=== PATIENT | male | born 1960 | race Hispanic/Latino ===

== ENCOUNTER 2017-09-21 08:41 | Day surgery (SDC) | payer OTHER ==
[2017-09-21] MEDS ORDERED: Ringers Lactate 1,000 ML IV ONE (08:54)
[2017-09-21] MEDS ORDERED: PROPOFOL 200 MG/20 ML VIAL IV ONE ×2 (09:46)
[2017-09-21] MEDS ORDERED: LIDOCAINE 1% MPF 5 ML VIAL ONE (09:46)
--- NOTE | 2017-09-21 10:16 | ENDO RPT ---
[address], [address] COLONOSCOPY PROCEDURE REPORT EXAM DATE: 09/21/2017 PATIENT NAME: Clemente Olmedo MR #: [id number] BIRTHDATE: 1960 ATTENDING: Akira Reyes DR STATUS: outpatient NEUROLOGY MANAGER: Phyllis Samano and Tierney Lira RN INDICATIONS: The patient is a 57 yr old Male here for a colonoscopy due to colon cancer screening PROCEDURE PERFORMED: Colonoscopy with biopsy - cold polypectomy MEDICATIONS: Per Anesthesia. ESTIMATED BLOOD LOSS: None CONSENT: The patient understands the risks and benefits of the procedure and understands that these risks include, but are not limited to: sedation, allergic reaction, infection, perforation and/or bleeding. Alternative means of evaluation and treatment include, among others: physical exam, x-rays, and/or surgical intervention. The patient elects to proceed with this endoscopic procedure. DESCRIPTION OF PROCEDURE: During intra-op preparation period all mechanical medical equipment was checked for proper function. Hand hygiene and appropriate measures for infection prevention was taken. Procedure, possible complications, alternatives including, but not limited to possibility of bleeding, perforation, tear, infection, sepsis, need for surgery, need for blood transfusion, were explained to the patient. After the risks, benefits and alternatives of the procedure were thoroughly explained, Informed consent was verified, confirmed and timeout was successfully executed by the treatment team. The patient was placed in the left lateral position. A digital rectal exam was performed and revealed internal hemorrhoids. After appropriate level of anesthesia, the scope was passed. The [id number] ([id number]) endoscope was introduced through the anus and advanced to the cecum, which was identified by both the appendix and ileocecal valve. The quality of the prep was fair. The instrument was then slowly withdrawn as the colon was fully examined. Scope withdrawal time was 13 minutes. COLON FINDINGS: A medium sized patch of abnormal mucosa was found in the right colon and left colon. The mucosa was erythematous and had petechiae. A polypectomy was performed with cold forceps. The resection was incomplete and the polyp tissue was completely retrieved. Two small smooth sessile polyps with friable surfaces were found in the right colon and sigmoid colon. A polypectomy was performed with cold forceps. The resection was complete, the polyp tissue was completely retrieved and sent to histology. Small internal hemorrhoids were found. Moderate diverticulosis was noted throughout the entire examined colon. No bleeding was noted from the diverticulosis. Retroflexed views revealed no abnormalities. The scope was then completely withdrawn from the patient and the procedure terminated. ADVERSE EVENTS: There were no complications. IMPRESSIONS: 1. Medium sized abnormal mucosa was found in the right colon and left colon; The mucosa was erythematous and had petechiae; polypectomy was performed with cold forceps 2. Two small sessile polyps were found in the right colon and sigmoid colon; polypectomy was performed in a piecemeal fashion with cold forceps 3. Small internal hemorrhoids RECOMMENDATIONS: 1. follow-up: office 2 week(s) 2. await biopsy results 3. avoid NSAIDS for 2 weeks 4. hemorrhoidal hygiene 5. increase dietary water 6. low fiber / diverticular diet RECALL: Return in 3 year(s) for Colonoscopy, pending biopsy results. Akira Reyes DR eSigned: Akira Reyes DR 09/21/2017 10:16 AM cc: CPT CODES: ICD9 CODES: PATIENT NAME: Clemente Olmedo MR#: [id number]
[2017-09-21 11:39] VITALS: BP 122/70; TEMP 97.4; O2SAT 99
== END 2017-09-21 11:05 | disposition home or self-care (01) ==
LOC: ENDO 08:41
PROVIDERS: ATTEND Surgery
PROC: 0DBN8ZX Excision of Sigmoid Colon, Via Natural or Artificial Opening Endoscopic, Diagnostic (ICD-10-PCS; 2017-09-21)
PROC: 0DBF8ZX Excision of Right Large Intestine, Via Natural or Artificial Opening Endoscopic, Diagnostic (ICD-10-PCS; principal; 2017-09-21 10:00)
DX: Z12.11 Encounter for screening for malignant neoplasm of colon (principal); D12.5 Benign neoplasm of sigmoid colon; K63.5 Polyp of colon; K57.90 Diverticulosis of intestine, part unspecified, without perforation or abscess without bleeding; K64.8 Other hemorrhoids; G47.33 Obstructive sleep apnea (adult) (pediatric); K21.9 Gastro-esophageal reflux disease without esophagitis; E66.9 Obesity, unspecified; Z87.891 Personal history of nicotine dependence; Z80.3 Family history of malignant neoplasm of breast; Z80.42 Family history of malignant neoplasm of prostate; Z83.3 Family history of diabetes mellitus
CPT/HCPCS: 88305

== ENCOUNTER 2017-09-23 18:15 | Emergency (ER) | payer OTHER ==
[2017-09-23 19:30] LABS: Urine Blood NEGATIVE (NEG); Urine Glucose NEGATIVE (NEG); Urine Protein NEGATIVE (NEG); Urine Specific Gravity >1.030 (1.005-1.030); Urine pH 5.5 (5.0-7.0)
[2017-09-23] MEDS ORDERED: FENTANYL CITR 100 MCG/2 ML ONE ×2 (19:30→22:39)
[2017-09-23] MEDS ORDERED: NA CHLORIDE 0.9% 1,000 ML ONE (19:30)
[2017-09-23] MEDS ORDERED: ONDANSETRON 4 MG/2 ML VIAL ONE (19:30)
[2017-09-23 19:50] LABS: Urine Bacteria <20 /HPF (NONE SEEN); Urine RBC <5 /HPF (NONE SEEN)
[2017-09-23 19:51] LABS: Urine Culture Reflex Order NOT NEEDED; Urine Mucus 1+ /HPF (NONE SEEN)
[2017-09-23 19:54] LABS: Absolute Lymphocytes (CBC) 1.2 K/uL (0.7-4.9); Absolute Monocytes 0.3 K/uL (0.1-1.3); Basophils % 0.5 % (0-1.3); Hematocrit 43.1 % (39.6-49.0); Lymphocytes % 26.9 % (15.3-44.8); MCH 28.8 pg (27.0-35.0); MCV 86.3 fL (80-100); MPV 10.6 fL (7.6-11.3); Monocytes % 6.1 % (3.3-12.3)
[2017-09-23 19:57] LABS: Bicarbonate 26 mEq/L (21-31); Glucose Level 90 mg/dL (65-120); Lipase 40 U/L (22-51); Potassium 3.6 mEq/L (3.6-5.0); Sodium Level 138 mEq/L (135-145)
[2017-09-23 20:03] LABS: ALT/SGPT 44 IU/L (10-60); AST/SGOT 32 IU/L (10-42); Alkaline Phosphatase 73 IU/L (42-121); Amylase Level 38 U/L (28-100); BUN Blood Urea Nitrogen 16 mg/dL (6-20); Bilirubin Direct 0.1 mg/dL (0-0.2); Bilirubin Total 0.6 mg/dL (0.3-1.2); Protein, Total 6.8 g/dL (6.0-8.3)
--- NOTE | 2017-09-23 22:00 | RAD REPORT ---
EXAM DESCRIPTION: CTAbdomen Pelvis W Contrast - 09/23/2017 9:50 pm CLINICAL HISTORY: Abdominal pain. COMPARISON: 05/14/2013 TECHNIQUE: Biphasic CT imaging of the abdomen and pelvis was performed with 100 ml non-ionic IV cont rast. All CT scans are performed using dose optimization technique as appropriate and may include automated exposure control or mA/KV adjustment according to patient size. FINDINGS: The lung bases are clear. The liver demonstrates diffuse fatty infiltration. The spleen, pancreas, adrenal glands and kidneys a re within normal limits. No bowel obstruction, free air, free fluid or abscess. Prominent sigmoid diverticulosis coli without diverticulitis. The appendix is normal. No evidence of significant lymphadenopathy. No suspicious bony findings. IMPRESSION: No acute intra-abdominal or pelvic finding. Fatty liver. Prominent diverticulosis coli without diverticulitis.
--- NOTE | 2017-09-23 22:14 | ER ---
Nurse's Notes [facility] Name: Clemente Olmedo Age: 57 yrs Sex: Male : 1960 Arrival Date: 09/23/2017 Time: 18:20 Bed 18 Private MD: Diagnosis: Low back pain;Radiculopathy, lumbosacral region;Lower abdominal pain, unspecified Presentation: 09/23 18:28 Presenting complaint: Patient states: I had a colonoscopy Sunday with dr Reyes and I la1 am having a bad pain in my chest/epigastric area that has been getting worse since the procedure, pt denies N/V/D. Transition of care: patient was not received from another setting of care. Onset of symptoms was September 23, 2017. Initial Sepsis Screen: Does the patient meet any 2 criteria? No. Patient's initial sepsis screen is negative. Does the patient have a suspected source of infection? No. Patient's initial sepsis screen is negative. Care prior to arrival: None. 18:28 Method Of Arrival: Ambulatory la1 18:28 Acuity: BEBA 3 la1 Triage Assessment: 18:33 General: Appears in no apparent distress. uncomfortable, obese, Behavior is calm, hj cooperative, appropriate for age. Pain: Complains of pain in abdomen Pain radiates to back Pain currently is 5 out of 10 on a pain scale. Quality of pain is described as crampy, pressure, stabbing, Pain began 2-3 days ago. Is intermittent. EENT: No signs and/or symptoms were reported regarding the EENT system. Neuro: Level of Consciousness is awake, alert, obeys commands, Oriented to person, place, time, situation, Appropriate for age. Cardiovascular: Capillary refill < 3 seconds Patient's skin is warm and dry. Respiratory: Airway is patent Respiratory effort is even, unlabored, Respiratory pattern is regular, symmetrical. GI: Abdomen is obese, Bowel sounds present X 4 quads. Abd is soft in epigastric area, right upper quadrant, left upper quadrant, right lower quadrant and left lower quadrant Abdomen is tender to palpation. : No signs and/or symptoms were reported regarding the genitourinary system. Derm: No signs and/or symptoms reported regarding the dermatologic system. Musculoskeletal: No signs and/or symptoms reported regarding the musculoskeletal system. Historical: - Allergies: 18:29 No Known Allergies; la1 - PMHx: 18:29 Diverticulitis; High Cholesterol; Arthritis; la1 - Immunization history:: Adult Immunizations up to date. - Social history:: Smoking status: Patient/guardian denies using tobacco. Screenin:33 Abuse screen: Denies threats or abuse. Denies injuries from another. Nutritional hj screening: No deficits noted. Tuberculosis screening: No symptoms or risk factors identified. Fall Risk None identified. Assessment: 18:35 Reassessment: see triage assessment;. hj 19:00 Reassessment: RECD REPORT FROM ULYSSES RODRIGUEZ. 57YO HM P/W ABD PAIN, H/O KIDNEY STONES AND bp RECENT COLONOSCOPY. PROVIDER EVAL IN PROCESS. 19:51 Reassessment: PT DRINKING PO CONTRAST. bp 20:19 Reassessment: PO CONTRAST COMPLETED, CT NOTIFIED. bp 21:41 Reassessment: PT TO CT WITH APPLICATION INFRASTRUCTURE ENGINEER. bp 22:47 Reassessment: PT D/C HOME AMBULATORY WITH FAMILY, DX WITH RADICULOPATHY. bp Vital Signs: 18:29 BP 109 / 81; Pulse 71; Resp 19; Temp 98.6; Pulse Ox 100% on R/A; Weight 114.76 kg; la1 Height 5 ft. 6 in. (167.64 cm); 18:49 BP 110 / 85; Pulse 65; Resp 18; Pulse Ox 98% on R/A; hj 19:48 BP 125 / 82; Pulse 64; Resp 18; Pulse Ox 97% ; bp 20:41 BP 116 / 77; Pulse 56; Resp 14; Pulse Ox 97% ; bp 22:15 BP 119 / 65; Pulse 54; Resp 14; Pulse Ox 96% ; bp 18:29 Body Mass Index 40.83 (114.76 kg, 167.64 cm) la1 ED Course: 18:20 Patient arrived in ED. mr 18:29 Triage completed. la1 18:29 Arm band placed on left wrist. la1 18:30 Ulysses Pizano, RN is Primary Nurse. hj 18:35 Patient has correct armband on for positive identification. Placed in gown. Bed in low hj position. Call light in reach. Side rails up X 1. Adult w/ patient. 18:44 Cindy Malave FNP-C [facility]. snw 18:44 Jarad Dean MD is Attending Physician. snw 18:45 Initial lab(s) drawn, by me, sent to lab. Inserted saline lock: 22 gauge in right hj antecubital area, using aseptic technique. Blood collected. 19:39 Inserted saline lock: 18 gauge in left antecubital area, using aseptic technique. IV bp discontinued, PT C/O POSITIONAL PAIN WITH 22GA R AC. 21:27 Primary Nurse role handed off by Ulysses Pizano, RN bp 21:27 Randy Jalloh, JENNIFER is Primary Nurse. bp 21:50 CT Abd/Pelvis - W/Contrast In Process Unspecified. EDMS 21:50 CT completed. Patient tolerated procedure well. Patient moved back from CT. cw1 22:13 Akira Reyes MD is Referral Physician. snw 22:48 No provider procedures requiring assistance completed. IV discontinued, intact, bp bleeding controlled, No redness/swelling at site. Pressure dressing applied. Administered Medications: 19:30 Drug: NS 0.9% 1000 ml Route: IV; Rate: 75 ml/hr; Site: left antecubital; bp 22:19 Follow up: IV Status: Completed infusion bp 19:30 Drug: fentaNYL (PF) 25 mcg Route: IVP; Site: left antecubital; bp 19:47 Follow up: Response: No adverse reaction bp 19:30 Drug: Zofran 4 mg Route: IVP; Site: left antecubital; bp 19:48 Follow up: Response: No adverse reaction bp 22:47 Drug: fentaNYL (PF) 50 mcg Route: IM; Site: right deltoid; bp 22:49 Follow up: Response: Medication administered at discharge. bp Outcome: 22:14 Discharge ordered by . snw 22:48 Discharged to home ambulatory, with family. bp 22:48 Condition: stable 22:48 Discharge instructions given to patient, Instructed on discharge instructions, follow up and referral plans. medication usage, Demonstrated understanding of instructions, follow-up care, medications, Prescriptions given X 2. 22:49 Patient left the ED. bp Signatures: Dispatcher [employer] EDMS Cindy Malave, CLERICAL METHODS ANALYST-C CLERICAL METHODS ANALYST-Csnw Paz Cal[place] Nadia Wilcox cw1 Garett Krueger RN RN la1 Ulysses Pizano, RN JENNIFER Randy Jalloh, JENNIFER RN bp Corrections: (The following items were deleted from the chart) 18:49 18:33 General: Appears in no apparent distress. uncomfortable, obese, Behavior is calm, hj cooperative, appropriate for age, hj 18:49 18:33 GI: Abdomen is obese, Bowel sounds present X 4 quads. Abdomen is tender to hj palpation Abd is rigid hj
--- NOTE | 2017-09-23 22:14 | EDPHYS ---
Physician Documentation [facility] Name: Clemente Olmedo Age: 57 yrs Sex: Male : 1960 Arrival Date: 09/23/2017 Time: 18:20 Bed 18 Private MD: ED Physician Jarad Dean HPI: 09/23 19:33 This 57 yrs old Male presents to ER via Ambulatory with complaints of snw Abdominal Pain. 19:33 Onset: The symptoms/episode began/occurred acutely. The symptoms do not radiate. snw Associated signs and symptoms: none. The symptoms are described as steady. Modifying factors: The symptoms are alleviated by nothing. Severity of pain: At its worst the pain was moderate severe. The patient has not experienced similar symptoms in the past. The patient has been recently seen by a physician: Dr. Reyes - colonoscopy on Sunday. Historical: - Allergies: 18:29 No Known Allergies; la1 - PMHx: 18:29 Diverticulitis; High Cholesterol; Arthritis; la1 - Immunization history:: Adult Immunizations up to date. - Social history:: Smoking status: Patient/guardian denies using tobacco. ROS: 19:25 Constitutional: Negative for fever, chills, and weight loss, Eyes: Negative for injury, snw pain, redness, and discharge, ENT: Negative for injury, pain, and discharge, Neck: Negative for injury, pain, and swelling, Cardiovascular: Negative for chest pain, palpitations, and edema, Respiratory: Negative for shortness of breath, cough, wheezing, and pleuritic chest pain, Abdomen/GI: Negative for nausea, vomiting, diarrhea, and constipation, + abdominal pain Back: Negative for injury + right lower back pain with radiation down right leg : Negative for injury, bleeding, discharge, and swelling, MS/Extremity: Negative for injury and deformity, Skin: Negative for injury, rash, and discoloration, Neuro: Negative for headache, weakness, numbness, tingling, and seizure, Psych: Negative for depression, anxiety, suicide ideation, homicidal ideation, and hallucinations. Exam: 19:20 Constitutional: This is a well developed, well nourished patient who is awake, alert, snw and in no acute distress. Head/Face: Normocephalic, atraumatic. Eyes: Pupils equal round and reactive to light, extra-ocular motions intact. Lids and lashes normal. Conjunctiva and sclera are non-icteric and not injected. Cornea within normal limits. Periorbital areas with no swelling, redness, or edema. ENT: Nares patent. No nasal discharge, no septal abnormalities noted. Tympanic membranes are normal and external auditory canals are clear. Oropharynx with no redness, swelling, or masses, exudates, or evidence of obstruction, uvula midline. Mucous membranes moist. Neck: Trachea midline, no thyromegaly or masses palpated, and no cervical lymphadenopathy. Supple, full range of motion without nuchal rigidity, or vertebral point tenderness. No Meningismus. Chest/axilla: Normal chest wall appearance and motion. Nontender with no deformity. No lesions are appreciated. Cardiovascular: Regular rate and rhythm with a normal S1 and S2. No gallops, murmurs, or rubs. Normal PMI, no JVD. No pulse deficits. Respiratory: Lungs have equal breath sounds bilaterally, clear to auscultation and percussion. No rales, rhonchi or wheezes noted. No increased work of breathing, no retractions or nasal flaring. Back: No spinal tenderness. No costovertebral tenderness. Full range of motion. Skin: Warm, dry with normal turgor. Normal color with no rashes, no lesions, and no evidence of cellulitis. MS/ Extremity: Pulses equal, no cyanosis. Neurovascular intact. Full, normal range of motion. Neuro: Awake and alert, GCS 15, oriented to person, place, time, and situation. Cranial nerves II-XII grossly intact. Motor strength 5/5 in all extremities. Sensory grossly intact. Cerebellar exam normal. Normal gait. 19:20 Abdomen/GI: Inspection: distension, that is mild, Bowel sounds: active, Palpation: moderate abdominal tenderness, severe abdominal tenderness, in the left upper quadrant and left lower quadrant, no appreciated organomegaly. Vital Signs: 18:29 BP 109 / 81; Pulse 71; Resp 19; Temp 98.6; Pulse Ox 100% on R/A; Weight 114.76 kg; la1 Height 5 ft. 6 in. (167.64 cm); 18:49 BP 110 / 85; Pulse 65; Resp 18; Pulse Ox 98% on R/A; hj 19:48 BP 125 / 82; Pulse 64; Resp 18; Pulse Ox 97% ; bp 20:41 BP 116 / 77; Pulse 56; Resp 14; Pulse Ox 97% ; bp 22:15 BP 119 / 65; Pulse 54; Resp 14; Pulse Ox 96% ; bp 18:29 Body Mass Index 40.83 (114.76 kg, 167.64 cm) la1 MDM: 18:46 Patient medically screened. snw 20:32 Data reviewed: vital signs, nurses notes. Data interpreted: Pulse oximetry: on room air snw is 97 %. Interpretation: normal. Counseling: I had a detailed discussion with the patient and/or guardian regarding: the historical points, exam findings, and any diagnostic results supporting the discharge/admit diagnosis, the presence of at least one elevated blood pressure reading (>120/80) during this emergency department visit, lab results. 09/23 19:16 Order name: Amylase, Serum; Complete Time: 20:25 snw 09/23 19:16 Order name: Basic Metabolic Panel; Complete Time: 20:25 snw 09/23 19:16 Order name: CBC with Diff; Complete Time: 20:25 snw 09/23 19:16 Order name: Creatinine for Radiology; Complete Time: 20:25 snw 09/23 19:16 Order name: Hepatic Function; Complete Time: 20:25 snw 09/23 19:16 Order name: Lipase; Complete Time: 20:25 snw 09/23 19:16 Order name: Urine Microscopic Only; Complete Time: 20:25 snw 09/23 19:27 Order name: Urine Dipstick--Ancillary (enter results); Complete Time: 19:34 mw2 09/23 19:35 Order name: CT Abd/Pelvis - W/Contrast; Complete Time: 22:01 snw 09/23 19:16 Order name: IV Saline Lock; Complete Time: 19:18 snw 09/23 19:16 Order name: Labs collected and sent; Complete Time: 19:41 snw 09/23 19:16 Order name: Urine Dipstick-Ancillary (obtain specimen); Complete Time: 19:41 snw Administered Medications: 19:30 Drug: NS 0.9% 1000 ml Route: IV; Rate: 75 ml/hr; Site: left antecubital; bp 22:19 Follow up: IV Status: Completed infusion bp 19:30 Drug: fentaNYL (PF) 25 mcg Route: IVP; Site: left antecubital; bp 19:47 Follow up: Response: No adverse reaction bp 19:30 Drug: Zofran 4 mg Route: IVP; Site: left antecubital; bp 19:48 Follow up: Response: No adverse reaction bp 22:47 Drug: fentaNYL (PF) 50 mcg Route: IM; Site: right deltoid; bp 22:49 Follow up: Response: Medication administered at discharge. bp Disposition: 09/23/17 22:14 Discharged to Home. Impression: Low back pain, Radiculopathy, lumbosacral region, Lower abdominal pain, unspecified. - Condition is Stable. - Discharge Instructions: Abdominal Pain, Adult, Back Pain, Adult, Lumbosacral Radiculopathy, Musculoskeletal Pain, Heat Therapy. - Prescriptions for Ultram 50 mg Oral Tablet - take 1 tablet by ORAL route every 6 hours As needed; 15 tablet. orphenadrine citrate 100 mg Oral Tablet Sustained Release - take 1 tablet by ORAL route 2 times per day As needed; 20 tablet. - Work release form, Medication Reconciliation Form, Thank You Letter, Antibiotic Education, Prescription Opioid Use form. - Follow up: Akira Reyes MD; When: 1 - 2 days; Reason: Recheck today's complaints, Continuance of care, Re-evaluation by your physician. Addendum: 10/02/2017 05:59 Co-signature as Attending Physician, Jarad Dean MD I agree with the assessment and w a plan of care. Signatures: Dispatcher [employer] [facility] Cindy Malave, MASK DESIGN ENGINEER-C MASK DESIGN ENGINEER-Csnw Garett Krueger, RN RN la1 aJrad Dean MD MD mo Randy Jalloh, RN RN bp Corrections: (The following items were deleted from the chart) 09/23 19:40 18:45 Abdomen Acute Series+[id number].[email or web address].BRZ ordered. [facility] 22:49 22:14 09/23/2017 22:14 Discharged to Home. Impression: Low back pain; Radiculopathy, bp lumbosacral region; Lower abdominal pain, unspecified. Condition is Stable. Forms are Medication Reconciliation Form, Thank You Letter, Antibiotic Education, Prescription Opioid Use. Follow up: Akira Reyes; When: 1 - 2 days; Reason: Recheck today's complaints, Continuance of care, Re-evaluation by your physician. snw
[2017-09-23 22:55] VITALS: TEMP 98.6
[2017-09-23 23:00] VITALS: BP 119/65; O2SAT 96
== END 2017-09-23 22:49 | disposition home or self-care (01) ==
LOC: ER 18:15
DX: M54.17 Radiculopathy, lumbosacral region (principal); R10.30 Lower abdominal pain, unspecified
CPT/HCPCS: 36415; 74177; 80048; 80076; 81003; 81015; 82150; 83690; 85025; 96361; 96372; 96374; 96375; 99284; J2405; J3010; J7030; Q9967

== ENCOUNTER 2018-02-14 22:17 | Emergency (ER) | payer OTHER ==
[2018-02-15] MEDS ORDERED: NA CHLORIDE 0.9% 50 ML IV ONE
[2018-02-15] MEDS ORDERED: CEFTRIAXONE 1000 MG/VIAL ONE
[2018-02-15 00:19] LABS: ALT/SGPT 78 U/L (12-78); AST/SGOT 55 U/L (15-37); Albumin 3.6 g/dL (3.4-5.0); Alkaline Phosphatase 105 U/L (45-117); BUN Blood Urea Nitrogen 18 mg/dL (7-18); Bicarbonate 26 mmol/L (21-32); Bilirubin Total 0.6 mg/dL (0.2-1.0); Glucose Level 142 mg/dL (74-106); NT PRO-BNP 10 pg/mL (<125); Potassium 3.3 mmol/L (3.5-5.1); Protein, Total 7.1 g/dL (6.4-8.2); Sodium Level 139 mmol/L (136-145); Troponin (Emerg Dept Use Only) < 0.02 ng/mL (0.0-0.045)
[2018-02-15 00:37] LABS: Absolute Lymphocytes (CBC) 1.2 K/uL (0.7-4.9); Absolute Monocytes 0.3 K/uL (0.1-1.3); Absolute Neutrophil 2.6 K/uL (1.8-8.0); Basophils % 0.5 % (0-1.3); Eosinophils % 3.5 % (0-4.4); Hematocrit 41.8 % (39.6-49.0); Lymphocytes % 27.4 % (15.3-44.8); MCH 29.6 pg (27.0-35.0); MCV 85.8 fL (80-100); MPV 11.1 fL (7.6-11.3); Monocytes % 7.7 % (3.3-12.3); RBC Red Blood Cell Count 4.87 M/uL (4.33-5.43)
--- NOTE | 2018-02-15 01:00 | ER ---
Nurse's Notes [facility] Name: Clemente Olmedo Age: 58 yrs Sex: Male : 1960 Arrival Date: 02/14/2018 Time: 22:21 Bed 15 Private MD: Diagnosis: Unspecified adverse effect of drug or medicament-amoxil, bactrim Presentation: 02/14 22:38 Presenting complaint: Patient states: he was started on amoxicillin and bactrim on bb Sunday for a sius infection his penis became swollen and he stopped the amoxicillin but continued the bactrim now he is itching and he is also c/o cramping to the inside of both legs. Transition of care: patient was not received from another setting of care. Onset of symptoms was February 10, 2018. Risk Assessment: Do you want to hurt yourself or someone else? Patient reports no desire to harm self or others. Initial Sepsis Screen: Does the patient meet any 2 criteria? No. Patient's initial sepsis screen is negative. Does the patient have a suspected source of infection? No. Patient's initial sepsis screen is negative. Care prior to arrival: None. 22:38 Method Of Arrival: Ambulatory 22:38 Acuity: BEBA 3 bb Triage Assessment: 02/15 01:34 General: Appears in no apparent distress. Behavior is calm, cooperative. mg2 Historical: - Allergies: 01:28 Bactrim; mg2 01:28 Amoxicillin; mg2 - Home Meds: 02/14 22:47 Bactrim DS Oral [Active]; Celebrex 200 mg Oral cap 1 cap 2 times per day [Active]; bb tramadol 50 mg Oral tab 1 tab twice a day [Active]; Crestor 10 mg oral tab 1 tab once daily [Active]; Allopurinol Oral once daily [Active]; Flomax 0.4 mg Oral cp24 1 cap once daily [Active]; Prilosec 40 mg Oral cpDR 1 cap once daily [Active]; - PMHx: 22:47 Arthritis; Diverticulitis; High Cholesterol; Gout; bb - PSHx: 22:47 None; bb - Immunization history:: Adult Immunizations up to date. - Social history:: Smoking status: Patient/guardian denies using tobacco, Patient uses alcohol, occasionally. Patient/guardian denies using street drugs. - Ebola Screening: : No symptoms or risks identified at this time. Screenin:30 Abuse screen: Denies threats or abuse. Denies injuries from another. Nutritional cc3 screening: No deficits noted. Tuberculosis screening: No symptoms or risk factors identified. Fall Risk Ambulatory Aid- None/Bed Rest/Nurse Assist (0 pts). Gait- Normal/Bed Rest/Wheelchair (0 pts) Mental Status- Oriented to own ability (0 pts). Assessment: 23:50 Reassessment: Patient appears in no apparent distress at this time. Patient and/or cc3 family updated on plan of care and expected duration. Pain level reassessed. Patient is alert, oriented x 3, equal unlabored respirations, skin warm/dry/pink. Patient taken by mold maintenance technician for CT scan stone protocol procedure. 02/15 00:30 Reassessment: Patient appears in no apparent distress at this time. Patient and/or cc3 family updated on plan of care and expected duration. Pain level reassessed. Patient is alert, oriented x 3, equal unlabored respirations, skin warm/dry/pink. 01:33 Reassessment: Patient appears in no apparent distress at this time. Patient and/or mg2 family updated on plan of care and expected duration. Pain level reassessed. Patient is alert, oriented x 3, equal unlabored respirations, skin warm/dry/pink. Pain: Denies pain. Vital Signs: 02/14 22:47 BP 119 / 70; Pulse 72; Resp 16 S; Temp 95(O); Pulse Ox 95% on R/A; Weight 117.03 kg bb (R); Height 5 ft. 6 in. (167.64 cm) (R); Pain 3/10; 23:30 BP 112 / 67; Pulse 84; Resp 18 S; Pulse Ox 98% on R/A; cc3 02/15 00:40 BP 114 / 73; Pulse 83; Resp 17 S; Pulse Ox 98% on R/A; cc3 01:33 BP 110 / 71; Pulse 85; Resp 18; Pulse Ox 100% on R/A; Pain 0/10; mg2 02/14 22:47 Body Mass Index 41.64 (117.03 kg, 167.64 cm) ED Course: 02/14 22:21 Patient arrived in ED. do 22:38 Rosa Grant is Primary Nurse. cc3 22:42 Triage completed. bb 22:47 Arm band placed on Patient placed in an exam room, on a stretcher, on pulse oximetry. bb Family accompanied patient. 23:20 Shaheen Nelson MD is Attending Physician. iain 23:45 Radiology exam delayed due to Patient in XRay. jg6 23:45 Inserted saline lock: 20 gauge in right antecubital area, using aseptic technique. cc3 Blood collected. 23:53 Chest Single View XRAY In Process Unspecified. EDMS 02/15 00:06 CT Stone Protocol In Process Unspecified. EDMS 00:37 Urine Culture Sent. ds4 00:37 GC (GONORR/CHLAMYDIA) Probe Sent. ds4 00:45 US Extremity Venous W Compression Art In Process Unspecified. EDMS 00:55 Janes Elkins MD is Referral Physician. iain 01:33 No provider procedures requiring assistance completed. IV discontinued, intact, mg2 bleeding controlled, No redness/swelling at site. Pressure dressing applied. 01:34 Patient has correct armband on for positive identification. mg2 Administered Medications: 00:30 Drug: Rocephin - (cefTRIAXone) 1 grams Route: IVPB; Infused Over: 30 mins; Site: right cc3 antecubital; 01:24 Follow up: Response: No adverse reaction; IV Status: Completed infusion mg2 00:55 Drug: Potassium Effervescent Tablet 25 mEq Route: PO; cc3 01:24 Follow up: Response: No adverse reaction mg2 01:20 Drug: Doxycycline 200 mg Route: PO; mg2 01:20 Follow up: Response: No adverse reaction; Medication administered at discharge. mg2 01:20 Drug: predniSONE 20 mg Route: PO; mg2 01:20 Follow up: Response: No adverse reaction; Medication administered at discharge. mg2 01:21 Drug: Pepcid 20 mg Route: IVP; Site: right antecubital; mg2 01:22 Follow up: Response: No adverse reaction; Medication administered at discharge. mg2 01:21 Drug: SOLU-Medrol 125 mg Route: IVP; Site: right antecubital; mg2 01:21 Follow up: Response: No adverse reaction; Medication administered at discharge. mg2 01:23 Not Given (Physician Discretion): Benadryl 25 mg IVP once mg2 01:23 Drug: Benadryl 25 mg Route: PO; mg2 01:23 Follow up: Response: No adverse reaction; Medication administered at discharge. mg2 Outcome: 01:00 Discharge ordered by . iain 01:33 Discharged to home ambulatory, with family. mg2 01:33 Condition: stable 01:33 Discharge instructions given to patient, family, Instructed on discharge instructions, follow up and referral plans. medication usage, Demonstrated understanding of instructions, follow-up care, medications, Prescriptions given X 4. 01:34 Patient left the ED. mg2 Addendum: 02/18/2018 09:25 Addendum: Culture Results: Positive urine culture. Bacteria is resistant to, has i w intermediate sensitivity, or is not tested against prescribed antibiotics. Report given to LYNN for further evaluation and then to civil cad tech for follow up with patient. Phone call Attempt #1 pt did not answer, unable to leave voice mail. Signatures: Dispatcher [employer] EDMS Shaheen Nelson MD MD cha Ballard, Brenda, RN RN bb Yanni Aguillon RN RN iw Swanson, Donovan ds4 Farida Wagner Michele, RN RN mg2 Rosa Grant3 Suzette [id number] Corrections: (The following items were deleted from the chart) 02/15 01:32 10 22:47 Allergies: No Known Allergies; jazmyne mg2
--- NOTE | 2018-02-15 01:00 | EDPHYS ---
Physician Documentation [facility] Name: Clemente Olmedo Age: 58 yrs Sex: Male : 1960 Arrival Date: 02/14/2018 Time: 22:21 Bed 15 Private MD: ED Physician Shaheen Nelson HPI: 02/14 23:29 This 58 yrs old Male presents to ER via Ambulatory with complaints of iain Medication Reaction, Testicular Problem. 23:29 The patient presents with swelling, that is mild, that is moderate, urinary symptoms, iain dysuria. Onset: The symptoms/episode began/occurred 5 day(s) ago. Modifying factors: The symptoms are alleviated by nothing, the symptoms are aggravated by nothing. Associated signs and symptoms: The patient has no apparent associated signs or symptoms. Severity of symptoms: At their worst the symptoms were. Historical: - Allergies: 02/15 01:28 Bactrim; mg2 01:28 Amoxicillin; mg2 - Home Meds: 02/14 22:47 Bactrim DS Oral [Active]; Celebrex 200 mg Oral cap 1 cap 2 times per day [Active]; bb tramadol 50 mg Oral tab 1 tab twice a day [Active]; Crestor 10 mg oral tab 1 tab once daily [Active]; Allopurinol Oral once daily [Active]; Flomax 0.4 mg Oral cp24 1 cap once daily [Active]; Prilosec 40 mg Oral cpDR 1 cap once daily [Active]; - PMHx: 22:47 Arthritis; Diverticulitis; High Cholesterol; Gout; bb - PSHx: 22:47 None; bb - Immunization history:: Adult Immunizations up to date. - Social history:: Smoking status: Patient/guardian denies using tobacco, Patient uses alcohol, occasionally. Patient/guardian denies using street drugs. - Ebola Screening: : No symptoms or risks identified at this time. ROS: 23:30 Constitutional: Negative for fever, chills, and weight loss, Eyes: Negative for injury, iain pain, redness, and discharge, ENT: Negative for injury, pain, and discharge, Neck: Negative for injury, pain, and swelling, Cardiovascular: Negative for chest pain, palpitations, and edema, Respiratory: Negative for shortness of breath, cough, wheezing, and pleuritic chest pain, Back: Negative for injury and pain, MS/Extremity: Negative for injury and deformity, Skin: Negative for injury, rash, and discoloration, Neuro: Negative for headache, weakness, numbness, tingling, and seizure. 23:30 Abdomen/GI: Positive for abdominal pain, abdominal distension. 23:30 : Positive for urinary symptoms, urinary frequency, burning with urination, penile discharge. Exam: 23:30 Constitutional: This is a well developed, well nourished patient who is awake, alert, iain and in no acute distress. Head/Face: Normocephalic, atraumatic. Eyes: Pupils equal round and reactive to light, extra-ocular motions intact. Lids and lashes normal. Conjunctiva and sclera are non-icteric and not injected. Cornea within normal limits. Periorbital areas with no swelling, redness, or edema. ENT: Nares patent. No nasal discharge, no septal abnormalities noted. Tympanic membranes are normal and external auditory canals are clear. Oropharynx with no redness, swelling, or masses, exudates, or evidence of obstruction, uvula midline. Mucous membranes moist. Neck: Trachea midline, no thyromegaly or masses palpated, and no cervical lymphadenopathy. Supple, full range of motion without nuchal rigidity, or vertebral point tenderness. No Meningismus. Chest/axilla: Normal chest wall appearance and motion. Nontender with no deformity. No lesions are appreciated. Cardiovascular: Regular rate and rhythm with a normal S1 and S2. No gallops, murmurs, or rubs. Normal PMI, no JVD. No pulse deficits. Respiratory: Lungs have equal breath sounds bilaterally, clear to auscultation and percussion. No rales, rhonchi or wheezes noted. No increased work of breathing, no retractions or nasal flaring. Back: No spinal tenderness. No costovertebral tenderness. Full range of motion. Skin: Warm, dry with normal turgor. Normal color with no rashes, no lesions, and no evidence of cellulitis. Neuro: Awake and alert, GCS 15, oriented to person, place, time, and situation. Cranial nerves II-XII grossly intact. Motor strength 5/5 in all extremities. Sensory grossly intact. Cerebellar exam normal. Normal gait. Psych: Awake, alert, with orientation to person, place and time. Behavior, mood, and affect are within normal limits. 23:30 Abdomen/GI: Inspection: distension, Bowel sounds: normal, Palpation: nontender, Liver: is firm, Hernia: not appreciated. 23:30 Musculoskeletal/extremity: ROM: limited active range of motion, limited passive range of motion, Circulation is intact in all extremities. DVT Exam: no swelling, no tenderness, negative Homans' sign noted on exam, no appreciated bluish discoloration, no erythema, no increased warmth, pain. Vital Signs: 22:47 BP 119 / 70; Pulse 72; Resp 16 S; Temp 95(O); Pulse Ox 95% on R/A; Weight 117.03 kg bb (R); Height 5 ft. 6 in. (167.64 cm) (R); Pain 3/10; 23:30 BP 112 / 67; Pulse 84; Resp 18 S; Pulse Ox 98% on R/A; cc3 02/15 00:40 BP 114 / 73; Pulse 83; Resp 17 S; Pulse Ox 98% on R/A; cc3 01:33 BP 110 / 71; Pulse 85; Resp 18; Pulse Ox 100% on R/A; Pain 0/10; mg2 02/14 22:47 Body Mass Index 41.64 (117.03 kg, 167.64 cm) bb MDM: 02/14 23:22 Patient medically screened. [facility] 23:32 Data reviewed: vital signs, nurses notes, lab test result(s), EKG, radiologic studies, [facility] CT scan, plain films. 02/14 23:29 Order name: CBC with Diff; Complete Time: 00:43 [facility] 02/14 23:29 Order name: Comprehensive Metabolic Panel; Complete Time: 00:43 [facility] 02/14 23:29 Order name: Urine Culture [facility] 02/14 23:29 Order name: GC (GONORR/CHLAMYDIA) Probe [facility] 02/14 23:29 Order name: BNP; Complete Time: 00:43 [facility] 02/14 23:29 Order name: Troponin (emerg Dept Use Only); Complete Time: 00:43 [facility] 02/14 23:29 Order name: US Extremity Venous W Compression Art [facility] 02/14 23:29 Order name: Chest Single View XRAY [facility] 02/14 23:33 Order name: CT Stone Protocol [facility] 02/15 00:38 Order name: Urine Dipstick--Ancillary (enter results) ds4 02/14 23:29 Order name: Urine Dipstick-Ancillary (obtain specimen); Complete Time: 00:37 [facility] 02/14 23:29 Order name: EKG; Complete Time: 23:30 [facility] 02/14 23:29 Order name: EKG - Nurse/Tech; Complete Time: 00:41 aiin Administered Medications: 02/15 00:30 Drug: Rocephin - (cefTRIAXone) 1 grams Route: IVPB; Infused Over: 30 mins; Site: right cc3 antecubital; 01:24 Follow up: Response: No adverse reaction; IV Status: Completed infusion mg2 00:55 Drug: Potassium Effervescent Tablet 25 mEq Route: PO; cc3 01:24 Follow up: Response: No adverse reaction mg2 01:20 Drug: Doxycycline 200 mg Route: PO; mg2 01:20 Follow up: Response: No adverse reaction; Medication administered at discharge. mg2 01:20 Drug: predniSONE 20 mg Route: PO; mg2 01:20 Follow up: Response: No adverse reaction; Medication administered at discharge. mg2 01:21 Drug: Pepcid 20 mg Route: IVP; Site: right antecubital; mg2 01:22 Follow up: Response: No adverse reaction; Medication administered at discharge. mg2 01:21 Drug: SOLU-Medrol 125 mg Route: IVP; Site: right antecubital; mg2 01:21 Follow up: Response: No adverse reaction; Medication administered at discharge. mg2 01:23 Not Given (Physician Discretion): Benadryl 25 mg IVP once mg2 01:23 Drug: Benadryl 25 mg Route: PO; mg2 01:23 Follow up: Response: No adverse reaction; Medication administered at discharge. mg2 Disposition: 02/15/18 01:00 Discharged to Home. Impression: Unspecified adverse effect of drug or medicament - amoxil, bactrim. - Condition is Stable. - Discharge Instructions: Drug Allergy, [id number], Drug Allergy. - Prescriptions for Benadryl 25 mg Oral Capsule - take 1 capsule by ORAL route every 6 hours As needed; 30 tablet. Pepcid 20 mg Oral Tablet - take 1 tablet by ORAL route every 12 hours for 10 days; 20 tablet. Doxycycline Hyclate 100 mg Oral Tablet - take 1 tablet by ORAL route every 12 hours; 20 tablet. Medrol (Jose) 4 mg Oral Tablets, Dose Pack - take 1 tablet by ORAL route as directed - follow package instructions; 1 packet. - Medication Reconciliation Form, Thank You Letter, Antibiotic Education, Prescription Opioid Use form. - Follow up: Private Physician; When: 2 - 3 days; Reason: Recheck today's complaints, Continuance of care, Re-evaluation by your physician. Follow up: Janes Elkins MD; When: 2 - 3 days; Reason: Recheck today's complaints, Re-evaluation by your physician. - Problem is new. - Symptoms have improved. Signatures: Dispatcher [employer] EDMS Shaheen Nelson MD MD cha Ballard, Brenda, RN RN bb Freddie Zuniga RN RN mg2 Rosa Grant cc3 Corrections: (The following items were deleted from the chart) 01:32 10 22:47 Allergies: No Known Allergies; jazmyne mg2 02/15 01:34 01:00 02/15/2018 01:00 Discharged to Home. Impression: Unspecified adverse effect of mg2 drug or medicament - amoxil, bactrim. Condition is Stable. Forms are Medication Reconciliation Form, Thank You Letter, Antibiotic Education, Prescription Opioid Use. Follow up: Private Physician; When: 2 - 3 days; Reason: Recheck today's complaints, Continuance of care, Re-evaluation by your physician. Follow up: Janes Elkins; When: 2 - 3 days; Reason: Recheck today's complaints, Re-evaluation by your physician. Problem is new. Symptoms have improved. iain
[2018-02-15] MEDS ORDERED: POTASSIUM 25 MEQ EFFERV TAB ONE (01:03)
[2018-02-15] MEDS ORDERED: FAMOTIDINE 20 MG/2 ML VIAL IV ONE (01:16)
[2018-02-15] MEDS ORDERED: METHYLPREDNISOLONE 125 MG INJ ONE (01:17)
[2018-02-15] MEDS ORDERED: DOXYCYCLINE 100 MG CAP PO ONE (01:17)
[2018-02-15] MEDS ORDERED: predniSONE 10 MG TAB ONE (01:17)
[2018-02-15] MEDS ORDERED: DIPHENHYDRAMINE 25 MG TAB/CAP ONE (01:21)
[2018-02-15 01:35] LABS: Urine Blood TRACE (NEG); Urine Glucose NEGATIVE (NEG); Urine Protein 1+ (NEG); Urine Specific Gravity >1.030 (1.005-1.030)
[2018-02-15 01:39] VITALS: TEMP 95
[2018-02-15 01:40] VITALS: BP 110/71; O2SAT 100
--- NOTE | 2018-02-15 07:53 | RAD REPORT ---
EXAM DESCRIPTION: USExtrem Venous W Compress Bil02/15/2018 12:44 am CLINICAL HISTORY: Bilateral leg pain COMPARISON: none FINDINGS: The common femoral, superficial femoral, popliteal and posterior tibial veins bilaterally are compressible and demonstrate augmentation. Doppler demonstrates good flow. IMPRESSION: No evidence of deep venous thrombosis involving either lower extremity.
--- NOTE | 2018-02-15 08:29 | RAD REPORT ---
EXAM DESCRIPTION: CT - Stone Protocol - 02/15/2018 12:05 am CLINICAL HISTORY: Abdominal pain. Lower abdominal pain. Urinary frequency COMPARISON: September 2017 TECHNIQUE: Computed axial tomography of the abdomen pelvis was obtained without oral or IV contrast. Lack of IV and oral contrast limits evaluation of solid organs, bowel, and vessels. Coronal reformat bandar images were obtained and reviewed. Preliminary report generated by [employer] radiologic and reviewe d prior to dictation All CT scans are performed using dose optimization technique as appropriate and may include automated exposure control or mA/KV adjustment according to patient size. FINDINGS: A 2 millimeter left renal calculus is seen without hydronephrosis. Right renal calculus is not noted. An ureteral calculus is not noted. A bladder calculus is not present. Liver has a diminished attenuation consistent with fatty infiltration. Spleen, pancreas and adrenals appear grossly normal There is no evidence of diverticulitis. The appendix appears normal Small inguinal hernias contain fat. IMPRESSION: 2 millimeter nonobstructing left renal calculus
--- NOTE | 2018-02-15 08:29 | RAD REPORT ---
EXAM DESCRIPTION: Nikos Single View02/14/2018 11:53 pm CLINICAL HISTORY: Cough COMPARISON: 2013 FINDINGS: The lungs appear clear of acute infiltrate. The heart is normal size IMPRESSION: No acute abnormalities displayed
--- NOTE | 2018-02-16 07:54 | EKG ---
Test Date: 2018-02-15 Test Time: 00:35:00 [employer] Toolsetter: MARINO MEASUREMENT RESULTS: Intervals: Rate: 70 KS: 172 QRSD: 106 QT: 402 QTc: 434 [place]: P: 41 KS: 172 QRS: -34 T: 48 INTERPRETIVE STATEMENTS: Normal sinus rhythm Left axis deviation Nonspecific T wave abnormality Abnormal ECG Compared to ECG 12/24/2014 15:16:48 T-wave abnormality now present Electronically Signed On 02-16-18 07:49:12 CDT by Vimal Junior
[2018-02-18 07:31] LABS: C.trachomatis RNA,TMA Not Detected (Not Detected)
== END 2018-02-15 01:34 | disposition home or self-care (01) ==
LOC: ER 22:17
DX: R30.0 Dysuria (principal); T36.0X5A Adverse effect of penicillins, initial encounter; T37.0X5A Adverse effect of sulfonamides, initial encounter; E78.00 Pure hypercholesterolemia, unspecified; M10.9 Gout, unspecified; Z88.1 Allergy status to other antibiotic agents
CPT/HCPCS: 36415; 71045; 74176; 76377; 80053; 81003; 83880; 84484; 85025; 87077; 87086; 87088; 87186; 87490; 87590; 93005; 93970; 96365; 96375; 99284; J2930; J7512

== ENCOUNTER 2018-05-10 07:27 | Day surgery (SDC) | payer OTHER ==
--- NOTE | 2018-05-03 07:03 | EKG ---
Test Date: 2018-05-01 Test Time: 16:15:06 [employer] Salesperson: ESTEFANI MEASUREMENT RESULTS: Intervals: Rate: 65 UT: 168 QRSD: 84 QT: 382 QTc: 397 [place]: P: 34 UT: 168 QRS: -29 T: 42 INTERPRETIVE STATEMENTS: Normal sinus rhythm Normal ECG Compared to ECG 03/12/2018 17:38:23 Sinus bradycardia no longer present Electronically Signed On 05-03-18 06:53:43 INSTRUCTIONAL TECHNOLOGY COORDINATOR by Vimal Junior
--- OUTSIDE RECORDS SUMMARY | 2018-05-10 07:30 | XMS REPORT ---
:1960 [facility] Address [address] [place] [address] Dr. Tesfaye. [address] [place] [id number] Care Team Providers Name Role Phone DR TG ELIZABETH Unavailable Unavailable Problems This patient has no known problems. Allergies, Adverse Reactions, Alerts This patient has no known allergies or adverse reactions. Medications This patient has no known medications. Encounters Start End Encounter Admission Attending Care Care Encounter Date/Time Date/Time Type Type Clinicians Facility Department ID 2018-03-22 2018-03-22 Outpatient LIZ SOARES [facility] [id number] 05:07:00 07:55:00 TG
[2018-05-10] MEDS ORDERED: Ringers Lactate 1,000 ML IV ONE ×2 (08:00→09:53)
[2018-05-10] MEDS ORDERED: OXYMETAZOLINE HCL 0.05% 15ML NAS ONE ×3 (08:08→08:23)
[2018-05-10] MEDS ORDERED: LIDOCAINE 1.5% W/EPI AMP 5 ML ONE (08:08)
[2018-05-10] MEDS: OXYMETAZOLINE HCL 0.05% 15ML NAS ONE ×3 (08:12→08:55)
[2018-05-10] MEDS ORDERED: NA CHLORIDE 0.9% 500 ML ONE (08:17)
[2018-05-10] MEDS ORDERED: PROPOFOL 200 MG/20 ML VIAL IV ONE (08:32)
[2018-05-10] MEDS ORDERED: ROCURONIUM 50 MG/5 ML VIAL IV ONE (08:32)
[2018-05-10] MEDS ORDERED: FENTANYL CITR 250 MCG/5 ML ONE (08:32)
[2018-05-10] MEDS ORDERED: LIDOCAINE 2% MPF 5 ML VIAL ONE (08:32)
[2018-05-10] MEDS ORDERED: MIDAZOLAM HCL 2 MG/2 ML INJ ONE (08:32)
[2018-05-10] MEDS ORDERED: DEXAMETHASONE 10 MG/ML VIAL ONE (09:10)
[2018-05-10] MEDS ORDERED: HYDRALAZINE HCL 20 MG/ML VIAL ONE (09:17)
--- NOTE | 2018-05-10 10:20 | P.BOP ---
Preoperative diagnosis: CRS, septal deviation, turbinate hypertrophy, nasal obstruction Postoperative diagnosis: same Primary procedure: NE with B sphenoid, frontal and maxillary dilation Secondary procedure: septoplasty Other procedure(s): submucosal turbinate reduction Estimated blood loss: 20ml Specimen: none Findings: placement of caudal strut Anesthesia: General Complications: None Implants: Awad splints Fluids & blood products: crystalloid 900ml Transferred to: Recovery Room Condition: Good
[2018-05-10] MEDS ORDERED: LABETALOL HCL 100 MG/20 ML ONE ×2 (11:05→11:07)
[2018-05-10] MEDS: MEPERIDINE HCL 25 MG/0.5 ML ONE ×4 (11:10→11:47)
[2018-05-10] MEDS ORDERED: TRAMADOL HCL 50 MG TAB ONE (13:26)
[2018-05-10] MEDS ORDERED: HYDROCODONE/APAP 10/325 TAB ONE (13:59)
[2018-05-10 14:04] VITALS: TEMP 98.4
[2018-05-10 14:10] VITALS: BP 154/84; O2SAT 98
--- NOTE | 2018-05-10 23:05 | OP ---
Date of Procedure: 05/10/2018 Surgeon: Blanca Hoffmann MD Preoperative Diagnoses: Recurrence in chronic sinusitis and septal deviation and turbinate hypertrop hy, history of nasal injury. Postoperative Diagnoses: Recurrence in chronic sinusitis and septal deviation and turbinate hypertro phy, history of nasal injury. Procedure: Bilateral nasal endoscopy with balloon dilation of frontal sphenoid and maxillary sinuses , septoplasty and submucous resection of inferior turbinates with down fracture. Indication For Procedure: Mr. Olmedo underwent culture directed antibiotic therapy and post treatment CT scan demonstrating narrow sinus outflow tracts, septal deviation and enlarged turbinates, despite long-term use of intranasal steroid sprays. The risks, benefits, and alternatives to the procedure w ere discussed with the patient who agreed to proceed. Description Of Procedure: The patient was brought to the operating room. He was placed under genera l anesthesia via oral endotracheal tube. The head of bed was turned 90 degrees and the nasal hairs w ere trimmed. The nasal cavity was packed with Afrin-soaked pledgets. A 0-degree endoscope was used to perform a nasal endoscopy. There was no active infection or evidence of polyposis at the time of the evaluation. The entellus balloon dilation device was prepared according to linux system administrator's direct ions and under endoscopic guidance was advanced into the left middle meatus and carefully into the fr ontal recess. Once the device was in place, the forehead was noted to illuminate brightly and the ba lloon was deployed and held for several seconds, then deflated and carefully withdrawn. A similar pr ocedure was performed on the right side. The balloon device was then reconfigured for use in the sph enoid sinus. Using a 0-degree endoscope, the device was advanced into the sphenoid ethmoid recess an d into the natural sphenoid os by palpation. Once the device was in place, the balloon was advanced over the guidewire, held in place for several seconds, then deflated and withdrawn and a similar proc edure performed on the contralateral side. The nasal cavities were suctioned some small amount of bl ood and the device was reconfigured to a 135 degree angle for dilation of the maxillary sinuses. Usi ng the 0-degree endoscope, the device was advanced into the nasal cavity and into the middle meatus. The tip of the device was carefully rotated around the uncinate process into the infundibulum and th e light fiber advanced with brilliant illumination of the maxillary sinus. The balloon device was th en advanced over the guidewire and inflated. After several seconds, the balloon was deflated and the device was carefully rotated out of the infundibulum and removed. Similar procedure was performed o n the contralateral side. The nasal scope was then set aside and preparations made for the remaining procedures. The septum was visualized under a headlight and nasal speculum, and was noted to have s evere right caudal cartilaginous deflection with bony deviation to the left. An enlargement of the i nferior turbinates despite recent use of topical Afrin in the preoperative area. The septum and infe rior turbinates were injected with 1.5% lidocaine with epinephrine. A total of 5.5 mL were used. A left hemitransfixion incision was made and bilateral mucosal flaps were elevated. The bony cartilagi nous junction was and the bony deviation was removed with heavy scissors and the Norma forceps. The anterior cartilage was friable and fractured easily likely as a result of prior trauma and inferior portion of the cartilaginous septum was harvested and trimmed to appropriate use and christy cedric as a caudal strut to improve the curvature of the caudal septum. The strut was sutured to the ca udal cartilaginous septum with a 5-0 PDS suture. After tightening of the suture allowed good approxi mation of the 2 pieces of cartilage and the cartilage graft acted to significantly improve the curvat ure and deviation of the circle caudal septum. The hemitransfixion incision was then closed in a sim ple running fashion using a 5-0 plain gut suture and decision were made to forego mattressing suture. Attention was then turned to the inferior turbinates, using a headlight and nasal speculum, a stab incision was made in the head of the middle turbinate and a Armand elevator was used to develop a sub mucosal pocket. The microdebrider fitted with inferior turbinate blade was then used to remove exces sive soft tissue to allow better overall nasal airway. The Keith elevator was then used to down fr acture the inferior turbinates for best optimization. The nose was packed with Afrin-soaked pledgets for several minutes to aide in hemostasis, particularly from the inferior turbinates which were quit e oozy. After several minutes, the packing was removed. Hemostasis was much improved and decision w as made to place Awad splint. Bilateral Awad splints were placed and secured to the anterior septu m using a 4-0 nylon suture. The circle pharynx, oropharynx were thoroughly suctioned and the patient was returned to care of anesthesia for awakening and extubation, which proceeded in the operating ro om without difficulty. Complications: None. Specimens: None. The patient will follow up with Dr. Hoffmann in 10 days for removal of splint and evaluation of deandre DOMINGUEZ/BANDAR Voice ID: [id number] Report ID: [id number]
== END 2018-05-10 14:30 | disposition home or self-care (01) ==
LOC: OR 07:27
PROVIDERS: ATTEND Otolaryngology
PROC: 09BL3ZZ Excision of Nasal Turbinate, Percutaneous Approach (ICD-10-PCS; 2018-05-10)
PROC: 09QT8ZZ Repair Left Frontal Sinus, Via Natural or Artificial Opening Endoscopic (ICD-10-PCS; 2018-05-10)
PROC: 09QW8ZZ Repair Right Sphenoid Sinus, Via Natural or Artificial Opening Endoscopic (ICD-10-PCS; 2018-05-10)
PROC: 09QX8ZZ Repair Left Sphenoid Sinus, Via Natural or Artificial Opening Endoscopic (ICD-10-PCS; 2018-05-10)
PROC: 09QQ8ZZ Repair Right Maxillary Sinus, Via Natural or Artificial Opening Endoscopic (ICD-10-PCS; 2018-05-10)
PROC: 09QR8ZZ Repair Left Maxillary Sinus, Via Natural or Artificial Opening Endoscopic (ICD-10-PCS; 2018-05-10)
PROC: 09QS8ZZ Repair Right Frontal Sinus, Via Natural or Artificial Opening Endoscopic (ICD-10-PCS; 2018-05-10)
PROC: 09UM07Z Supplement Nasal Septum with Autologous Tissue Substitute, Open Approach (ICD-10-PCS; principal; 2018-05-10 10:30)
DX: J32.9 Chronic sinusitis, unspecified (principal); J34.2 Deviated nasal septum; J35.3 Hypertrophy of tonsils with hypertrophy of adenoids; Z87.828 Personal history of other (healed) physical injury and trauma; D64.9 Anemia, unspecified; E78.5 Hyperlipidemia, unspecified; F32.9 Major depressive disorder, single episode, unspecified; G47.33 Obstructive sleep apnea (adult) (pediatric); K21.9 Gastro-esophageal reflux disease without esophagitis; M10.9 Gout, unspecified; M19.90 Unspecified osteoarthritis, unspecified site; E66.9 Obesity, unspecified; Z68.41 Body mass index [BMI] 40.0-44.9, adult; Z79.899 Other long term (current) drug therapy; Z87.891 Personal history of nicotine dependence
CPT/HCPCS: 93005; J0360; J1100; J2001; J2175; J2250; J2704; J3010

== ENCOUNTER 2018-05-14 16:45 | Emergency (ER) | payer OTHER ==
--- OUTSIDE RECORDS SUMMARY | 2018-05-14 16:47 | XMS REPORT ---
:1960 [facility] Address [address] [place] [address] Dr. Tesfaye. [address] [place] [id number] Care Team Providers Name Role Phone DR TG ELIZABETH Unavailable Unavailable Problems This patient has no known problems. Allergies, Adverse Reactions, Alerts This patient has no known allergies or adverse reactions. Medications This patient has no known medications. Encounters Start End Encounter Admission Attending Care Care Encounter Date/Time Date/Time Type Type Clinicians Facility Department ID 2018-03-22 2018-03-22 Outpatient LIZ SOARES [facility] [place] [id number] 05:07:00 07:55:00 TG
[2018-05-14] MEDS ORDERED: NA CHLORIDE 0.9% 1,000 ML ONE (17:29)
[2018-05-14] MEDS ORDERED: MORPHINE 4 MG/ML SYR ONE (17:29)
[2018-05-14] MEDS ORDERED: CEFTRIAXONE/SWI 1gm 1 GM/10 ML SYR ONE (17:29)
[2018-05-14] MEDS ORDERED: ONDANSETRON 4 MG/2 ML VIAL ONE (17:29)
[2018-05-14 17:38] LABS: Absolute Lymphocytes (CBC) 1.2 K/uL (0.7-4.9); Absolute Monocytes 0.3 K/uL (0.1-1.3); Absolute Neutrophil 3.6 K/uL (1.8-8.0); Basophils % 0.7 % (0-1.3); Eosinophils % 2.6 % (0-4.4); Hematocrit 44.3 % (39.6-49.0); Lymphocytes % 23.2 % (15.3-44.8); Monocytes % 5.4 % (3.3-12.3); RBC Red Blood Cell Count 5.13 M/uL (4.33-5.43)
[2018-05-14 17:40] LABS: Protime INR 0.99
[2018-05-14 17:54] LABS: Albumin 3.5 g/dL (3.4-5.0); Bilirubin Total 0.4 mg/dL (0.2-1.0); Potassium 3.6 mmol/L (3.5-5.1); Protein, Total 6.8 g/dL (6.4-8.2)
--- NOTE | 2018-05-14 18:22 | RAD REPORT ---
EXAM DESCRIPTION: CT - Head Brain Wo Cont - 05/14/2018 5:55 pm CLINICAL HISTORY: Bleeding from left nostril, history of nasal surgery COMPARISON: CT sinus study March 2018 TECHNIQUE: Axial 5 mm thick images of the head were obtained without IV contrast. All CT scans are performed using dose optimization technique as appropriate and may include automated exposure control or mA/KV adjustment according to patient size. FINDINGS: No intracranial hemorrhage, mass, edema or shift of mid-line structures. No acute infarcti on changes seen. Minimal atrophy and mild chronic ischemic changes are noted. Ventricles are normal. No acute intracranial finding seen. Mastoid air cells are clear. Frontal sinuses are clear. Mucosal thickening present throughout most of the ethmoid air cells. Small air-fluid levels are present in the maxillary and sphenoid sinuses. Sunny al passages are incompletely visualized. No acute bony findings. IMPRESSION: Minimal atrophy and mild chronic ischemic changes are present. No acute intracranial fin ding. Paranasal sinus mucosal thickening and air-fluid levels are present. Nasal passages are not adequatel y visualize to allow assessment.
--- NOTE | 2018-05-14 18:32 | EDPHYS ---
Physician Documentation [facility] Name: Clemente Olmedo Age: 58 yrs Sex: Male : 1960 Arrival Date: 05/14/2018 Time: 16:50 Bed 5 Private MD: ARNAUD LLNAOS ED Physician Shaheen Nelson HPI: 05/14 17:08 This 58 yrs old Male presents to ER via Ambulatory with complaints of Post iain Surgical Bleeding - NOSE. 17:08 The patient presents with a nose bleed, that is stopped /dried blood noted. causative iain factors include: sp surgery. Onset: The symptoms/episode began/occurred 5 day(s) ago. Modifying factors: The symptoms are alleviated by pressure, the symptoms are aggravated by blowing nose, bending over. The patient complains of pain to the forehead, nose, right frontal area, right temporal area and right side of forehead. The patient describes the headache as a pressure. Onset: The symptoms/episode began/occurred 2 day(s) ago. Associated signs and symptoms: The patient has no apparent associated signs or symptoms. Severity of symptoms: At its worst the pain was moderate, in the emergency department the pain is unchanged. Headache History: Denies prior headaches. The symptoms are alleviated by nothing. the symptoms are aggravated by movement. Historical: - Allergies: 17:07 Sulfa (Sulfonamide Antibiotics); aj1 17:07 PENICILLINS; aj1 - Home Meds: 17:07 Allopurinol Oral once daily [Active]; Celebrex 200 mg Oral cap 1 cap 2 times per day aj1 [Active]; Crestor 10 mg Oral tab 1 tab once daily [Active]; Flomax 0.4 mg Oral cp24 1 cap once daily [Active]; Prilosec 40 mg Oral cpDR 1 cap once daily [Active]; tramadol 50 mg Oral tab 1 tab twice a day [Active]; - PMHx: 17:07 Arthritis; Diverticulitis; Gout; High Cholesterol; aj1 - PSHx: 17:07 nasal sx; aj1 - Immunization history:: Adult Immunizations up to date. - Social history:: Smoking status: . - Family history:: not pertinent. - Ebola Screening: : No symptoms or risks identified at this time. ROS: 17:08 Constitutional: Negative for fever, chills, and weight loss, Eyes: Negative for injury, iain pain, redness, and discharge, Neck: Negative for injury, pain, and swelling, Cardiovascular: Negative for chest pain, palpitations, and edema, Respiratory: Negative for shortness of breath, cough, wheezing, and pleuritic chest pain, Abdomen/GI: Negative for abdominal pain, nausea, vomiting, diarrhea, and constipation, Back: Negative for injury and pain, : Negative for injury, bleeding, discharge, and swelling, MS/Extremity: Negative for injury and deformity, Skin: Negative for injury, rash, and discoloration, Neuro: Negative for headache, weakness, numbness, tingling, and seizure, Psych: Negative for depression, anxiety, suicide ideation, homicidal ideation, and hallucinations, Allergy/Immunology: Negative for hives, rash, and allergies, Endocrine: Negative for neck swelling, polydipsia, polyuria, polyphagia, and marked weight changes, Hematologic/Lymphatic: Negative for swollen nodes, abnormal bleeding, and unusual bruising. 17:08 ENT: Positive for nose bleed. 17:08 Neuro: Positive for headache, of the right side of forehead and right temporal area and right frontal area. Exam: 17:08 Constitutional: This is a well developed, well nourished patient who is awake, alert, iain and in no acute distress. Head/Face: Normocephalic, atraumatic. Eyes: Pupils equal round and reactive to light, extra-ocular motions intact. Lids and lashes normal. Conjunctiva and sclera are non-icteric and not injected. Cornea within normal limits. Periorbital areas with no swelling, redness, or edema. Neck: Trachea midline, no thyromegaly or masses palpated, and no cervical lymphadenopathy. Supple, full range of motion without nuchal rigidity, or vertebral point tenderness. No Meningismus. Chest/axilla: Normal chest wall appearance and motion. Nontender with no deformity. No lesions are appreciated. Cardiovascular: Regular rate and rhythm with a normal S1 and S2. No gallops, murmurs, or rubs. Normal PMI, no JVD. No pulse deficits. Respiratory: Lungs have equal breath sounds bilaterally, clear to auscultation and percussion. No rales, rhonchi or wheezes noted. No increased work of breathing, no retractions or nasal flaring. Abdomen/GI: Soft, non-tender, with normal bowel sounds. No distension or tympany. No guarding or rebound. No evidence of tenderness throughout. Back: No spinal tenderness. No costovertebral tenderness. Full range of motion. Male : Normal genitalia with no discharge or lesions. Skin: Warm, dry with normal turgor. Normal color with no rashes, no lesions, and no evidence of cellulitis. MS/ Extremity: Pulses equal, no cyanosis. Neurovascular intact. Full, normal range of motion. Neuro: Awake and alert, GCS 15, oriented to person, place, time, and situation. Cranial nerves II-XII grossly intact. Motor strength 5/5 in all extremities. Sensory grossly intact. Cerebellar exam normal. Normal gait. Psych: Awake, alert, with orientation to person, place and time. Behavior, mood, and affect are within normal limits. 17:08 ENT: Posterior pharynx: dried blood. 17:08 Neck: ROM/movement: is normal, no acute changes, Meningeal signs: are not present, Kernig's sign is negative, Brudzinski's sign is negative. 17:08 Neuro: Orientation: is normal, appropriate for stated age, no acute changes, Mentation: is normal, appropriate for stated age, no acute changes, Memory: is normal, appropriate for stated age, no acute changes, Cranial nerves: grossly normal, is grossly normal based on the patient's age, no acute changes, Cerebellar function: is grossly normal, is grossly normal based on the patient's age, no acute changes, Motor: is normal, is grossly normal based on the patient's age, no acute changes, moves all fours, strength is 5/5 in all extremities, Sensation: no obvious gross deficits, appropriate no acute changes, Gait: not tested. Deep tendon reflexes are 2+ (normal) in the bilateral brachioradialis, bicep, tricep and patellar and Achilles tendons, Babinski testing is normal, seizure activity, is not displayed by the patient. Vital Signs: 17:04 BP 115 / 69; Pulse 75; Resp 18; Temp 98.1; Pulse Ox 98% on R/A; Weight 108.86 kg; aj1 Height 5 ft. 6 in. (167.64 cm); Pain 4/10; 18:55 BP 109 / 69; Pulse 79; Resp 18; Pulse Ox 100% on R/A; Pain 0/10; mg2 17:04 Body Mass Index 38.74 (108.86 kg, 167.64 cm) aj1 MDM: 17:02 Patient medically screened. [facility] 17:12 Data reviewed: vital signs, nurses notes, lab test result(s), radiologic studies. [facility] 05/14 17:32 Order name: Comprehensive Metabolic Panel; Complete Time: 17:54 EDMS 05/14 17:32 Order name: CBC with Automated Diff; Complete Time: 17:54 EDMS 05/14 17:32 Order name: Protime (+INR); Complete Time: 17:54 EDMS 05/14 17:27 Order name: Head Brain Wo Cont; Complete Time: 18:30 EDMS Administered Medications: 17:38 Drug: morphine 2 mg Route: IVP; Site: left antecubital; mg2 18:50 Follow up: Response: No adverse reaction; Marked relief of symptoms mg2 17:38 Drug: morphine 2 mg Route: IVP; Site: left antecubital; mg2 18:50 Follow up: Response: No adverse reaction; Marked relief of symptoms mg2 17:38 Drug: Rocephin 1 grams Route: IV; Rate: per protocol; Site: left antecubital; mg2 18:50 Follow up: Response: No adverse reaction; IV Status: Completed infusion mg2 17:39 Drug: NS 0.9% 1000 ml Route: IV; Rate: 1 bolus; Site: left antecubital; mg2 18:51 Follow up: Response: No adverse reaction; IV Status: Completed infusion mg2 17:39 Drug: Zofran 4 mg Route: IVP; Site: left antecubital; mg2 18:51 Follow up: Response: No adverse reaction; Marked relief of symptoms mg2 Disposition: 05/14/18 18:31 Discharged to Home. Impression: Epistaxis - POST SURGICAL, STABLE, Nausea and vomiting, Headache. - Condition is Stable. - Discharge Instructions: Nosebleed, Adult, General Headache Without Cause, General Headache Without Cause, [id number]. - Prescriptions for Keflex 500 mg Oral Capsule - take 1 capsule by ORAL route every 6 hours for 7 days; 28 capsule. Zofran 4 mg Oral Tablet - take 1 tablet by ORAL route every 12 hours As needed; 20 tablet. Tylenol- Codeine #3 300-30 mg Oral Tablet - take 2 tablets by ORAL route every 6 hours As needed; 20 tablet. - Medication Reconciliation Form, Thank You Letter, Antibiotic Education, Prescription Opioid Use form. - Follow up: Blanca Shun; When: Tomorrow; Reason: Recheck today's complaints, Continuance of care, Re-evaluation by your physician. - Problem is new. - Symptoms have improved. Signatures: Dispatcher [employer] [facility] Aleja Coe RN RN aj1 Shaheen Nelson MD MD cha Gardose, Michele, RN RN mg2 Corrections: (The following items were deleted from the chart) 18:38 18:15 Head Brain Wo Cont+CT.RAD.BRZ ordered. EDWI EDWI 18:52 18:15 CBC+H.LAB.BRZ ordered. EDWI EDWI 18:52 18:15 COMPREHENSIVE METABOLIC PANEL+C.LAB.BRZ ordered. [facility] EDWI 18:53 18:15 PROTIME (+INR)+COAG.LAB.BRZ ordered. [facility] EDWI 18:56 18:31 05/14/2018 18:31 Discharged to Home. Impression: Epistaxis - POST SURGICAL, mg2 STABLE; Nausea and vomiting; Headache. Condition is Stable. Discharge Instructions: Nosebleed, Adult, General Headache Without Cause, General Headache Without Cause, [id number]. Prescriptions for Keflex 500 mg Oral Capsule - take 1 capsule by ORAL route every 6 hours for 7 days; 28 capsule, Zofran 4 mg Oral Tablet - take 1 tablet by ORAL route every 12 hours As needed; 20 tablet. and Forms are Medication Reconciliation Form, Thank You Letter, Antibiotic Education, Prescription Opioid Use. Follow up: Blanca Hoffmann; When: Tomorrow; Reason: Recheck today's complaints, Continuance of care, Re-evaluation by your physician. Problem is new. Symptoms have improved. iain
--- NOTE | 2018-05-14 18:32 | ER ---
Nurse's Notes [facility] Name: Clemente Olmedo Age: 58 yrs Sex: Male : 1960 Arrival Date: 05/14/2018 Time: 16:50 Bed 5 Private MD: ARNAUD LLANOS Diagnosis: Epistaxis-POST SURGICAL, STABLE;Nausea and vomiting;Headache Presentation: 05/14 17:03 Presenting complaint: Patient states: Nasal sx on Sunday w/ Dr Perez, bleeding from aj1 L nare since procedure, worse when bending over, also reports nausea, denies vomiting or fever. Transition of care: patient was not received from another setting of care. Onset of symptoms was May 14, 2018. Risk Assessment: Do you want to hurt yourself or someone else? Patient reports no desire to harm self or others. Initial Sepsis Screen: Does the patient meet any 2 criteria? No. Patient's initial sepsis screen is negative. Does the patient have a suspected source of infection? No. Patient's initial sepsis screen is negative. Care prior to arrival: None. 17:03 Method Of Arrival: Ambulatory aj1 17:03 Acuity: BEBA 3 aj1 Historical: - Allergies: 17:07 Sulfa (Sulfonamide Antibiotics); aj1 17:07 PENICILLINS; aj1 - Home Meds: 17:07 Allopurinol Oral once daily [Active]; Celebrex 200 mg Oral cap 1 cap 2 times per day aj1 [Active]; Crestor 10 mg Oral tab 1 tab once daily [Active]; Flomax 0.4 mg Oral cp24 1 cap once daily [Active]; Prilosec 40 mg Oral cpDR 1 cap once daily [Active]; tramadol 50 mg Oral tab 1 tab twice a day [Active]; - PMHx: 17:07 Arthritis; Diverticulitis; Gout; High Cholesterol; aj1 - PSHx: 17:07 nasal sx; aj1 - Immunization history:: Adult Immunizations up to date. - Social history:: Smoking status: . - Family history:: not pertinent. - Ebola Screening: : No symptoms or risks identified at this time. Screenin:07 Abuse screen: Denies threats or abuse. Denies injuries from another. Nutritional mg2 screening: No deficits noted. Tuberculosis screening: No symptoms or risk factors identified. Fall Risk None identified. Assessment: 17:05 General: Appears in no apparent distress. uncomfortable, Behavior is calm, cooperative. mg2 Pain: Complains of pain in head Pain does not radiate. Pain currently is 4 out of 10 on a pain scale. Quality of pain is described as aching, Pain began gradually, 2-3 days ago. Is intermittent. Neuro: Level of Consciousness is awake, alert, obeys commands, Oriented to person, place, time, situation. Neuro: Reports headache. Cardiovascular: Capillary refill < 3 seconds Patient's skin is warm and dry. Respiratory: Airway is patent Respiratory effort is even, unlabored, Respiratory pattern is regular, symmetrical. GI: Reports nausea. : No signs and/or symptoms were reported regarding the genitourinary system. EENT: Reports nasal bleeding since the surgery especially when he bend over. Derm: Skin is intact, is healthy with good turgor, Skin is pink, warm \T\ dry. normal. Musculoskeletal: Circulation, motion, and sensation intact. Capillary refill < 3 seconds. Vital Signs: 17:04 BP 115 / 69; Pulse 75; Resp 18; Temp 98.1; Pulse Ox 98% on R/A; Weight 108.86 kg; aj1 Height 5 ft. 6 in. (167.64 cm); Pain 4/10; 18:55 BP 109 / 69; Pulse 79; Resp 18; Pulse Ox 100% on R/A; Pain 0/10; mg2 17:04 Body Mass Index 38.74 (108.86 kg, 167.64 cm) aj1 ED Course: 16:50 Patient arrived in ED. sb2 16:50 ARANUD LLANOS is Private Physician. sb2 17:01 Shaheen Nelson MD is Attending Physician. [facility] 17:04 Triage completed. aj1 17:04 Freddie Zuniga, JENNIFER is Primary Nurse. mg2 17:07 Arm band placed on. mg2 17:07 Patient has correct armband on for positive identification. Pulse ox on. NIBP on. Door mg2 closed. 17:39 No provider procedures requiring assistance completed. Inserted saline lock: 22 gauge mg2 in left antecubital area, using aseptic technique. Blood collected. 17:[address] vm2 17:54 CT completed. Patient tolerated procedure well. Patient moved back from CT. vm2 17:55 Head Brain Wo Cont In Process Unspecified. EDMS 18:31 Hoffmann, Blanca, MD is Referral Physician. iain 18:53 IV discontinued, intact, bleeding controlled, No redness/swelling at site. Pressure mg2 dressing applied. Administered Medications: 17:38 Drug: morphine 2 mg Route: IVP; Site: left antecubital; mg2 18:50 Follow up: Response: No adverse reaction; Marked relief of symptoms mg2 17:38 Drug: morphine 2 mg Route: IVP; Site: left antecubital; mg2 18:50 Follow up: Response: No adverse reaction; Marked relief of symptoms mg2 17:38 Drug: Rocephin 1 grams Route: IV; Rate: per protocol; Site: left antecubital; mg2 18:50 Follow up: Response: No adverse reaction; IV Status: Completed infusion mg2 17:39 Drug: NS 0.9% 1000 ml Route: IV; Rate: 1 bolus; Site: left antecubital; mg2 18:51 Follow up: Response: No adverse reaction; IV Status: Completed infusion mg2 17:39 Drug: Zofran 4 mg Route: IVP; Site: left antecubital; mg2 18:51 Follow up: Response: No adverse reaction; Marked relief of symptoms mg2 Outcome: 18:31 Discharge ordered by . iain 18:56 Discharged to home ambulatory, with family. mg2 18:56 Condition: stable 18:56 Discharge instructions given to patient, family, Instructed on discharge instructions, follow up and referral plans. medication usage, Demonstrated understanding of instructions, follow-up care, medications, Prescriptions given X 3. 18:56 Patient left the ED. mg2 Signatures: Dispatcher [employer] Aleja Millan RN RN aj1 Shaheen Nelson MD MD cha McGuire, Victoria 2 Marysol Barfield 2 Freddie Zuniga RN RN mg2
[2018-05-14 19:03] VITALS: TEMP 98.1
[2018-05-14 19:04] VITALS: BP 109/69; O2SAT 100
== END 2018-05-14 18:56 | disposition home or self-care (01) ==
LOC: ER 16:45
DX: R04.0 Epistaxis (principal); R11.2 Nausea with vomiting, unspecified; R51 Headache; Z88.0 Allergy status to penicillin; Z88.2 Allergy status to sulfonamides
CPT/HCPCS: 36415; 70450; 80053; 85025; 85610; 96365; 96375; 99284; J0696; J2405; J7030

== ENCOUNTER 2018-09-17 18:00 | Emergency (ER) | payer OTHER ==
--- OUTSIDE RECORDS SUMMARY | 2018-09-17 18:03 | XMS REPORT ---
:1960 [facility] Address [address] [place] [address] Dr. Tesfaye. [address] [place] [id number] Care Team Providers Name Role Phone DR TG ELIZABETH Unavailable Unavailable Problems This patient has no known problems. Allergies, Adverse Reactions, Alerts This patient has no known allergies or adverse reactions. Medications This patient has no known medications. Encounters Start End Encounter Admission Attending Care Care Encounter Date/Time Date/Time Type Type Clinicians Facility Department ID 2018-03-22 2018-03-22 Out[place] [facility] [place] [id number] 05:07:00 07:55:00 TG
--- NOTE | 2018-09-17 20:26 | RAD REPORT ---
EXAM DESCRIPTION: CT - Stone Protocol - 09/17/2018 7:59 pm CLINICAL HISTORY: Abdominal pain. COMPARISON: February 2018 TECHNIQUE: Computed axial tomography of the abdomen pelvis was obtained without oral or IV contrast. Lack of IV and oral contrast limits evaluation of solid organs, bowel, and vessels. Coronal reformat bandar images were obtained and reviewed. All CT scans are performed using dose optimization technique as appropriate and may include automated exposure control or mA/KV adjustment according to patient size. FINDINGS: 2 millimeter left renal calculus without hydronephrosis. An ureteral calculus is not noted . A bladder calculus is not present. Fatty liver spleen, pancreas and adrenals appear grossly normal There is no evidence of diverticulitis. The appendix appears normal. Small inguinal hernias contain fat. Prostate gland mildly enlarged IMPRESSION: Nonobstructing left renal calculus
[2018-09-17 20:28] LABS: Absolute Lymphocytes (CBC) 1.5 K/uL (0.7-4.9); Absolute Monocytes 0.3 K/uL (0.1-1.3); Absolute Neutrophil 3.2 K/uL (1.8-8.0); Basophils % 0.6 % (0-1.3); Eosinophils % 2.3 % (0-4.4); Hematocrit 43.6 % (39.6-49.0); MPV 10.5 fL (7.6-11.3); RBC Red Blood Cell Count 5.01 M/uL (4.33-5.43)
[2018-09-17 20:41] LABS: Albumin 3.8 g/dL (3.4-5.0); Bilirubin Direct 0.1 mg/dL (0-0.2); Bilirubin Total 0.4 mg/dL (0.2-1.0); Potassium 3.7 mmol/L (3.5-5.1)
[2018-09-17 20:44] LABS: Urine Blood NEGATIVE (NEG); Urine Glucose NEGATIVE (NEG); Urine Protein 1+ (NEG); Urine Specific Gravity >1.030 (1.005-1.030); Urine pH 5.5 (5.0-7.0)
[2018-09-17] MEDS ORDERED: KETOROLAC 30 MG/ML INJ ONE (20:53)
--- NOTE | 2018-09-17 20:54 | ER ---
Nurse's Notes [facility] Name: Clemente Olmedo Age: 58 yrs Sex: Male : 1960 Arrival Date: 09/17/2018 Time: 18:01 Bed 20 Private MD: ARNAUD LLANOS Diagnosis: Generalized abdominal pain Presentation: 09/17 18:12 Presenting complaint: Patient states: LUQ abdominal pain that radiates to RUQ. Patient aj accidentally ingested a small piece of plastic several weeks ago and is concerned he has retained it.. Also report pressure in rectum. Transition of care: patient was not received from another setting of care. Onset of symptoms was August 31, 2018. Risk Assessment: Do you want to hurt yourself or someone else? Patient reports no desire to harm self or others. Initial Sepsis Screen: Does the patient meet any 2 criteria? No. Patient's initial sepsis screen is negative. Does the patient have a suspected source of infection? No. Patient's initial sepsis screen is negative. Care prior to arrival: None. 18:12 Method Of Arrival: Ambulatory 18:12 Acuity: BEBA 3 aj Triage Assessment: 18:14 General: Appears in no apparent distress. uncomfortable, Behavior is calm, cooperative, aj appropriate for age. Pain: Complains of pain in left upper quadrant. Neuro: Level of Consciousness is awake, alert, obeys commands, Oriented to person, place, time, situation, Appropriate for age. Respiratory: Airway is patent Respiratory effort is even, unlabored, Respiratory pattern is regular, symmetrical. GI: Reports upper abdominal pain. Derm: Skin is intact, is healthy with good turgor, Skin is pink, warm \T\ dry. normal. Historical: - Allergies: 18:14 PENICILLINS; aj 18:14 Sulfa (Sulfonamide Antibiotics); aj - Home Meds: 18:14 Allopurinol Oral once daily [Active]; Celebrex 200 mg Oral cap 1 cap 2 times per day aj [Active]; Crestor 10 mg Oral tab 1 tab once daily [Active]; Flomax 0.4 mg Oral cp24 1 cap once daily [Active]; Prilosec 40 mg Oral cpDR 1 cap once daily [Active]; tramadol 50 mg Oral tab 1 tab twice a day [Active]; - PMHx: 18:14 Arthritis; Diverticulitis; Gout; High Cholesterol; aj - PSHx: 18:14 nasal sx; aj - Immunization history:: Adult Immunizations up to date. - Social history:: Smoking status: Patient/guardian denies using tobacco. - Ebola Screening: : Patient negative for fever greater than or equal to 101.5 degrees Fahrenheit, and additional compatible Ebola Virus Disease symptoms Patient denies exposure to infectious person Patient denies travel to an Ebola-affected area in the 21 days before illness onset No symptoms or risks identified at this time. Screenin:27 Abuse screen: Denies threats or abuse. Denies injuries from another. Nutritional rr5 screening: No deficits noted. Tuberculosis screening: No symptoms or risk factors identified. 20:40 Fall Risk IV access (20 points). Total Brown Fall Scale indicates No Risk (0-24 pts). rr5 Assessment: 19:15 General: Appears in no apparent distress. uncomfortable, Behavior is calm, cooperative, rr5 appropriate for age. Pain: Complains of pain in abdomen Pain radiates to pelvic and groin Pain currently is 4 out of 10 on a pain scale. Quality of pain is described as aching, Pain began gradually, Is intermittent. 19:15 Neuro: Level of Consciousness is awake, alert, obeys commands, Oriented to person, rr5 place, time, situation, Appropriate for age. Cardiovascular: Capillary refill < 3 seconds Patient's skin is warm and dry. Respiratory: Airway is patent Respiratory effort is even, unlabored, Respiratory pattern is regular, symmetrical. GI: Abdomen is obese, Bowel sounds present X 4 quads. Abdomen is tender to palpation X 4 quads. Reports lower abdominal pain, upper abdominal pain, i swallowed a plastic thing. Patient currently denies vomiting. : No signs and/or symptoms were reported regarding the genitourinary system. EENT: No signs and/or symptoms were reported regarding the EENT system. Derm: Skin is intact, Skin temperature is warm. Musculoskeletal: Capillary refill < 3 seconds, Range of motion: intact in all extremities. 20:20 Reassessment: Patient appears in no apparent distress at this time. Patient is alert, rr5 oriented x 3, equal unlabored respirations, skin warm/dry/pink. awaiting for result. 21:14 Reassessment: Patient appears in no apparent distress at this time. Patient is alert, rr5 oriented x 3, equal unlabored respirations, skin warm/dry/pink. discharge instruction given and explained without complaints made. Patient states feeling better. Patient states symptoms have improved. Vital Signs: 18:14 BP 113 / 71; Pulse 64; Resp 19; Temp 98.6; Pulse Ox 98% on R/A; Weight 109.77 kg; aj Height 5 ft. 6 in. (167.64 cm); 19:20 BP 139 / 80; Pulse 65; Resp 17; Temp 98.5; Pulse Ox 99% ; Pain 4/10; rr5 20:00 BP 131 / 75; Pulse 60; Resp 19; Pulse Ox 99% on R/A; Pain 4/10; rr5 21:00 BP 123 / 66; Pulse 62; Resp 17; Temp 98.1; Pulse Ox 97% ; Pain 2/10; rr5 18:14 Body Mass Index 39.06 (109.77 kg, 167.64 cm) aj ED Course: 18:01 Patient arrived in ED. as 18:01 ARNAUD LLANOS is Private Physician. as 18:14 Triage completed. aj 18:14 Arm band placed on left wrist. Patient placed in waiting room, Patient notified of wait aj time. 19:19 John Burnham MD is Attending Physician. gs 19:19 Tc Ly RN is Primary Nurse. rr5 19:27 Patient has correct armband on for positive identification. Bed in low position. Call rr5 light in reach. Side rails up X2. Pulse ox on. NIBP on. 19:51 Patient moved to HI via wheelchair. vm2 19:57 CT completed. Patient tolerated procedure well. Patient moved back from HI. nj 19:59 CT Stone Protocol In Process Unspecified. EDMS 20:33 Inserted saline lock: 20 gauge in right antecubital area, using aseptic technique. oe Blood collected. 20:51 Cam Grey MD is Referral Physician. gs 21:11 No provider procedures requiring assistance completed. IV discontinued, intact, rr5 bleeding controlled, No redness/swelling at site. Pressure dressing applied. Administered Medications: 20:40 Drug: TORadol - Ketorolac 15 mg Route: IVP; Site: right antecubital; rr5 21:11 Follow up: Response: No adverse reaction; Marked relief of symptoms rr5 Outcome: 20:53 Discharge ordered by MD. 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 21:11 Condition: stable 21:11 Discharge instructions given to patient, Instructed on discharge instructions, follow up and referral plans. Demonstrated understanding of instructions, follow-up care. 21:14 Patient left the ED. rr5 Signatures: Dispatcher [employer] EDMartha Rogel, RN RN Theresa Barrios Nathan nj Espin[place], [place] oe [place], [facility] John Burnham MD MD gs Roque, Raymond, RN RN rr5
--- NOTE | 2018-09-17 20:54 | EDPHYS ---
Physician Documentation [facility] Name: Clemente Olmedo Age: 58 yrs Sex: Male : 1960 Arrival Date: 09/17/2018 Time: 18:01 Bed 20 Private MD: ARNAUD LLANOS ED Physician John Burnham HPI: 09/17 20:39 This 58 yrs old Male presents to ER via Ambulatory with complaints of gs Abdominal Pain. 20:40 The patient presents with abdominal pain in the upper abdomen, in the lower abdomen. gs Onset: The symptoms/episode began/occurred 1 week(s) ago. The symptoms do not radiate. Associated signs and symptoms: Pertinent negatives: nausea, vomiting, and diarrhea, dysuria, fever. The symptoms are described as crampy, intermittent. Modifying factors: The symptoms are alleviated by nothing, the symptoms are aggravated by nothing. Severity of pain: At its worst the pain was moderate in the emergency department the pain is unchanged. The patient has experienced similar episodes in the past, a few times. thinks might have ingested small piece of plastic from a plastic container. Historical: - Allergies: 18:14 PENICILLINS; aj 18:14 Sulfa (Sulfonamide Antibiotics); aj - Home Meds: 18:14 Allopurinol Oral once daily [Active]; Celebrex 200 mg Oral cap 1 cap 2 times per day aj [Active]; Crestor 10 mg Oral tab 1 tab once daily [Active]; Flomax 0.4 mg Oral cp24 1 cap once daily [Active]; Prilosec 40 mg Oral cpDR 1 cap once daily [Active]; tramadol 50 mg Oral tab 1 tab twice a day [Active]; - PMHx: 18:14 Arthritis; Diverticulitis; Gout; High Cholesterol; aj - PSHx: 18:14 nasal sx; aj - Immunization history:: Adult Immunizations up to date. - Social history:: Smoking status: Patient/guardian denies using tobacco. - Ebola Screening: : Patient negative for fever greater than or equal to 101.5 degrees Fahrenheit, and additional compatible Ebola Virus Disease symptoms Patient denies exposure to infectious person Patient denies travel to an Ebola-affected area in the 21 days before illness onset No symptoms or risks identified at this time. ROS: 20:40 All other systems are negative. gs Exam: 20:40 Head/Face: Normocephalic, atraumatic. Eyes: Pupils equal round and reactive to light, gs extra-ocular motions intact. Lids and lashes normal. Conjunctiva and sclera are non-icteric and not injected. Cornea within normal limits. Periorbital areas with no swelling, redness, or edema. ENT: Nares patent. No nasal discharge, no septal abnormalities noted. Tympanic membranes are normal and external auditory canals are clear. Oropharynx with no redness, swelling, or masses, exudates, or evidence of obstruction, uvula midline. Mucous membranes moist. Neck: Trachea midline, no thyromegaly or masses palpated, and no cervical lymphadenopathy. Supple, full range of motion without nuchal rigidity, or vertebral point tenderness. No Meningismus. Chest/axilla: Normal chest wall appearance and motion. Nontender with no deformity. No lesions are appreciated. Cardiovascular: Regular rate and rhythm with a normal S1 and S2. No gallops, murmurs, or rubs. Normal PMI, no JVD. No pulse deficits. Respiratory: Lungs have equal breath sounds bilaterally, clear to auscultation and percussion. No rales, rhonchi or wheezes noted. No increased work of breathing, no retractions or nasal flaring. Back: No spinal tenderness. No costovertebral tenderness. Full range of motion. Male : Normal genitalia with no discharge or lesions. Skin: Warm, dry with normal turgor. Normal color with no rashes, no lesions, and no evidence of cellulitis. MS/ Extremity: Pulses equal, no cyanosis. Neurovascular intact. Full, normal range of motion. Neuro: Awake and alert, GCS 15, oriented to person, place, time, and situation. Cranial nerves II-XII grossly intact. Motor strength 5/5 in all extremities. Sensory grossly intact. Cerebellar exam normal. Normal gait. 20:40 Constitutional: The patient appears alert, awake. 20:40 Abdomen/GI: Inspection: abdomen appears normal, Palpation: soft, in all quadrants, mild abdominal tenderness, in all quadrants, rebound tenderness, is not appreciated. Vital Signs: 18:14 BP 113 / 71; Pulse 64; Resp 19; Temp 98.6; Pulse Ox 98% on R/A; Weight 109.77 kg; aj Height 5 ft. 6 in. (167.64 cm); 19:20 BP 139 / 80; Pulse 65; Resp 17; Temp 98.5; Pulse Ox 99% ; Pain 4/10; rr5 20:00 BP 131 / 75; Pulse 60; Resp 19; Pulse Ox 99% on R/A; Pain 4/10; rr5 21:00 BP 123 / 66; Pulse 62; Resp 17; Temp 98.1; Pulse Ox 97% ; Pain 2/10; rr5 18:14 Body Mass Index 39.06 (109.77 kg, 167.64 cm) aj MDM: 19:48 Patient medically screened. gs 20:40 Differential diagnosis: bowel obstruction, diverticulitis, gastritis, gastroesophageal gs reflux disease, foreign body. Data reviewed: vital signs, nurses notes, lab test result(s), radiologic studies. Counseling: I had a detailed discussion with the patient and/or guardian regarding: the historical points, exam findings, and any diagnostic results supporting the discharge/admit diagnosis, lab results, radiology results, the need for outpatient follow up, a cabinet maker. Response to treatment: the patient's symptoms have markedly improved after treatment, and as a result, I will discharge patient. 09/17 19:48 Order name: Urine Microscopic Only; Complete Time: 20:59 09/17 19:48 Order name: Basic Metabolic Panel; Complete Time: 20:53 09/17 19:48 Order name: CBC with Diff; Complete Time: 20:32 09/17 19:48 Order name: Hepatic Function; Complete Time: 20:53 09/17 19:48 Order name: Lipase; Complete Time: 20:53 09/17 20:41 Order name: Urine Dipstick--Ancillary (enter results); Complete Time: 20:53 [facility] 09/17 19:48 Order name: Urine Dipstick-Ancillary (obtain specimen); Complete Time: 20:24 09/17 19:48 Order name: IV Saline Lock; Complete Time: 20:44 09/17 19:48 Order name: Labs collected and sent; Complete Time: 20:44 09/17 19:48 Order name: CT Stone Protocol; Complete Time: 20:32 09/17 20:59 Order name: Urine Culture EDMS Administered Medications: 20:40 Drug: TORadol - Ketorolac 15 mg Route: IVP; Site: right antecubital; rr5 21:11 Follow up: Response: No adverse reaction; Marked relief of symptoms rr5 Disposition: 09/17/18 20:53 Discharged to Home. Impression: Generalized abdominal pain. - Condition is Stable. - Discharge Instructions: Abdominal Pain, Adult. - Medication Reconciliation Form, Thank You Letter, Antibiotic Education, Prescription Opioid Use form. - Follow up: Private Physician; When: 2 - 3 days; Reason: Re-evaluation by your physician. Follow up: Cam Grey MD; When: 2 - 3 days; Reason: Re-evaluation by your physician. Signatures: Dispatcher [employer] EDMartha Rogel RN RN John Rascon MD MD Tc Ly RN RN rr5 Corrections: (The following items were deleted from the chart) 21:14 20:53 09/17/2018 20:53 Discharged to Home. Impression: Generalized abdominal pain. rr5 Condition is Stable. Forms are Medication Reconciliation Form, Thank You Letter, Antibiotic Education, Prescription Opioid Use. Follow up: Private Physician; When: 2 - 3 days; Reason: Re-evaluation by your physician. Follow up: Cam Grey; When: 2 - 3 days; Reason: Re-evaluation by your physician.
[2018-09-17 20:58] LABS: Calcium Oxalate Crystals- Ur FEW (NONE SEEN); Urine Bacteria >50 /HPF (NONE SEEN); Urine Culture Reflex Order REFLEXED; Urine Mucus 1+ /HPF (NONE SEEN); Urine RBC NONE SEEN /HPF (NONE SEEN)
[2018-09-17 22:34] VITALS: BP 123/66; TEMP 98.1; O2SAT 97
== END 2018-09-17 21:14 | disposition home or self-care (01) ==
LOC: ER 18:00
DX: R10.84 Generalized abdominal pain (principal); M10.9 Gout, unspecified; Z88.0 Allergy status to penicillin; Z88.2 Allergy status to sulfonamides
CPT/HCPCS: 36415; 74176; 76377; 80048; 80076; 81003; 81015; 83690; 85025; 87086; 87088; 96374; 99284